=== PATIENT | female | born 1960 | race African-American/Black ===

== ENCOUNTER 2025-02-28 20:06 | Emergency (ER) | payer OTHER, SELFPAY ==
[2025-02-28 22:56] LABS: #Basophils 0.03 10x3/uL (0.0-0.2); #Eosinophils 0.09 10x3/uL (0.0-0.7); #Monocytes 0.84 10x3/uL (0.11-0.59); #Neutrophils 5.55 10x3/uL (1.40-6.50); %Basophils 0.3 % (0.0-1.0); %Eosinophils 1.0 % (0.0-10.0); %Lymphocytes 24.0 % (21.0-51.0); %Monocytes 9.8 % (0.0-10.0); %Neutrophils 64.6 % (42.0-75.0); Hematocrit 26.5 % (36.0-47.0); Hemoglobin 8.2 g/dL (12.0-16.0); Mean Corpuscular Hemoglobin 27.2 pg (27.0-31.0); Mean Corpuscular Volume 87.7 fL (78.0-98.0); Platelet Count 381 10x3/uL (130-400); Red Blood Cell (RBC) Count 3.02 mill/uL (4.20-5.40); White Blood Cell (WBC) Count 8.61 10x3/uL (4.8-10.8)
[2025-02-28 23:14] LABS: ALT (SGPT) 9 U/L (Less than 34); AST (SGOT) 15 U/L (11-34); Acetaminophen Less than 10 mcg/mL (Less than 10); Albumin 2.9 g/dL (3.1-4.5); Alkaline Phosphatase 112 U/L (40-110); Anion Gap 13 mmol/L (10-20); BUN (Urea Nitrogen) 25 mg/dL (9.8-20.1); Bilirubin, Total 0.3 mg/dL (0.3-1.2); Calc. Creatinine Clearance 0 mL/min (70-130); Calcium 8.9 mg/dL (7.8-10.44); Carbon Dioxide 24 mmol/L (23-31); Chloride 109 mmol/L (98-107); Globulin 3.5 g/dL (2.4-3.5); Glucose 120 mg/dL (80-115); Potassium 3.1 mmol/L (3.5-5.1); Salicylate Less than 8.0 mg/dL (Less than 8.0); Sodium 143 mmol/L (136-145)
[2025-02-28 23:36] LABS: Free T4 (Free Thyroxine) 1.26 ng/dL (0.70-1.48)
[2025-03-01] MEDS ORDERED: Iopamidol-370 76% 500 ML MDV (1 ML CHARGE) ONE (11:12)
== END 2025-03-01 03:37 | disposition home or self-care (01) ==
LOC: ERS 20:06
DX: R60.0 Localized edema (principal); I10 Essential (primary) hypertension; F20.0 Paranoid schizophrenia; F17.210 Nicotine dependence, cigarettes, uncomplicated; Z55.6 Problems related to health literacy
CPT/HCPCS: 71275; 80053; 80307; 83880; 84439; 84443; 84484; 85025; 85379; 93005

== ENCOUNTER 2025-04-20 22:07 | Emergency (ER) | payer SELFPAY ==
[2025-04-20] MEDS ORDERED: Furosemide 40 MG TAB ONE (23:16)
== END 2025-04-21 00:52 | disposition home or self-care (01) ==
LOC: ERS 22:07
DX: R60.0 Localized edema (principal); I10 Essential (primary) hypertension; F17.210 Nicotine dependence, cigarettes, uncomplicated; Z76.5 Malingerer [conscious simulation]; Z59.00 Homelessness unspecified
CPT/HCPCS: 99283